=== PATIENT | male | born 1995 | race Two or more races ===

== ENCOUNTER 2018-05-07 09:43 | Emergency (ER) | payer MEDICAID, SELFPAY ==
[~2018-05-07] VITALS: Ht 172.7 cm; Wt 88.0 kg
[2018-05-07 09:46] VITALS: BP 126/83
--- NOTE | 2018-05-07 09:54 | NUR ---
laceration third left digit. pt states he cut it on a timing belt
[2018-05-07] MEDS ORDERED: LIDOCAINE 2%, 20ML SQ ONE (10:30)
--- NOTE | 2018-05-07 11:04 | NUR ---
IRRIGATED LACERATION WITH 1 LITER NORMAL SALINE
[2018-05-07] MEDS ORDERED: HYDROcodone/APAP 5/325 TABLET ONE (11:24)
[2018-05-07] MEDS ORDERED: HYDROcodone/APAP 5/325 TABLET PO ONE (11:30)
--- NOTE | 2018-05-07 11:37 | NUR ---
MEDICATED FOR LEFT HAND FOURTH DIGHT PAIN. FOURTH DIGIT SPLINTED AND DRESSING APPLIED TO REPAIRED LACERATION 3RD DIGIT
== END 2018-05-07 12:27 | disposition home or self-care (01) ==
LOC: ED 10:03 → MERGE 10:03 → ED 12:27
DX: S62.621A Displaced fracture of middle phalanx of left index finger, initial encounter for closed fracture (principal); S61.213A Laceration without foreign body of left middle finger without damage to nail, initial encounter; X58.XXXA Exposure to other specified factors, initial encounter; Y93.89 Activity, other specified; Y92.89 Other specified places as the place of occurrence of the external cause; Y99.8 Other external cause status
CPT/HCPCS: 12001; 99283

== ENCOUNTER 2018-05-08 08:05 | Emergency (ER) | payer SELFPAY ==
[~2018-05-08] VITALS: Ht 172.7 cm; Wt 88.0 kg
[2018-05-08 08:06] VITALS: BP 122/84
[2018-05-08] MEDS ORDERED: HYDROcodone/APAP 5/325 TABLET PO ONE (08:30)
[2018-05-08] MEDS ORDERED: ONDANSETRON ODT 4 MG PO ONE (08:30)
[2018-05-08] MEDS ORDERED: ONDANSETRON ODT 4 MG ONE (08:43)
[2018-05-08] MEDS ORDERED: HYDROcodone/APAP 5/325 TABLET ONE (08:43)
[2018-05-08] MEDS ORDERED: BACITRACIN ZINC OINT 500U/GM, 0.9 GM ONE (09:04)
== END 2018-05-08 11:13 | disposition home or self-care (01) ==
LOC: ED 09:55
DX: S62.603A Fracture of unspecified phalanx of left middle finger, initial encounter for closed fracture (principal); S61.213A Laceration without foreign body of left middle finger without damage to nail, initial encounter; X58.XXXA Exposure to other specified factors, initial encounter; Y93.89 Activity, other specified; Y92.69 Other specified industrial and construction area as the place of occurrence of the external cause; Y99.0 Civilian activity done for income or pay
CPT/HCPCS: 99283; Q0162

== ENCOUNTER 2018-07-12 13:19 | Emergency (ER) | payer SELFPAY ==
[~2018-07-12] VITALS: Ht 175.3 cm; Wt 87.0 kg
[2018-07-12 13:41] VITALS: BP 121/74
[2018-07-12] MEDS ORDERED: CEFTRIAXONE 250 MG IM ONE (14:00)
[2018-07-12] MEDS ORDERED: AZITHROMYCIN 500 MG TABLET PO ONE (14:00)
--- NOTE | 2018-07-12 14:10 | NUR ---
TASK RN NOTE: PT BROUGHT BACK TO ROOM 09, GAIT STEADY, PT A&O, RESPS EVEN AND UNALBORED. PT CONFIRMS HE HAS NO ALLERGIES. 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 LAB CALLED TO SEE IF URINE IS IN LAB, LAB CONFIRMS THEY HAVE PT'S URINE SAMPLE. THIS RN REQUESTED CHLAMYDIA/GC TO BE RUN FROM URINE IN LAB.
[2018-07-12] MEDS ORDERED: LIDOCAINE-MPF 1%, 2ML ONE (14:14)
[2018-07-12] MEDS ORDERED: CEFTRIAXONE 250 MG ONE (14:14)
[2018-07-12] MEDS ORDERED: AZITHROMYCIN 500 MG TABLET ONE (14:14)
--- NOTE | 2018-07-12 14:33 | NUR ---
task RN note: pt denies any sx, states he is seeking treatment only because partner tested positive for chlamydia. pt medicated per emar, tolerated well. pt to be dc'd.
== END 2018-07-12 14:47 | disposition home or self-care (01) ==
LOC: ED 14:23
DX: Z20.2 Contact with and (suspected) exposure to infections with a predominantly sexual mode of transmission (principal)
CPT/HCPCS: 87491; 87591; 96372; 99283; J0696